=== PATIENT | female | born 1950 | race Caucasian/White ===

== ENCOUNTER → 2023-10-31 09:38 | Outpatient (REF) | payer MEDICARE, OTHER, SELFPAY ==
[2023-10-31 09:59] LABS: % Basophils 1.1 % (0-2); % Eosinophils 1.8 % (0-6); % Immature Granulocytes 0.2 % (0-0.5); % Lymphocytes 27.7 % (20.5-51.1); % Monocytes 10.5 % (1.7-9.3); % Neutrophils 58.7 % (42.2-75.2); Absolute Basophils 0.1 10^3/uL (0-0.2); Absolute Eosinophils 0.1 10^3/uL (0-0.7); Absolute Lymphocytes 1.6 10^3/uL (1.2-3.4); Absolute Monocytes 0.6 10^3/uL (0.1-0.6); Absolute Neutrophils 3.3 10^3/uL (1.4-6.5); Hematocrit 39.6 % (37.0-47.0); Hemoglobin 13.3 g/dL (12.0-16.0); Mean Corp Hgb Conc. 33.6 g/dL (33.0-37.0); Mean Corpuscular Hgb 31.5 pg (27.0-31.0); Mean Corpuscular Volume 93.8 fL (81.0-99.0); Nucleated Red Blood Cells % 0 %; Platelet Count 219 10^3/uL (130-400); Red Blood Cell Count 4.22 10^6/uL (4.20-5.40); Red Cell Dist. Width 12.8 % (11.5-14.5); White Blood Cell Count 5.6 10^3/uL (4.8-10.8)
[2023-10-31 10:55] LABS: Vitamin D, 25-OH*** 53.3 ng/mL (30-80)
[2023-10-31 10:56] LABS: TSH 2.85 uIU/ml (0.47-4.68)
[2023-10-31 11:31] LABS: ALT (SGPT) 14 U/L (0-35); AST (SGOT) 25 U/L (14-36); Albumin 3.8 g/dl (3.5-5.0); Alkaline Phosphatase 48 U/L (38-126); Blood Urea Nitrogen 21 mg/dl (7-17); Calcium 9.4 mg/dl (8.4-10.2); Carbon Dioxide 27 mmol/L (22-30); Chloride 102 mmol/L (98-107); Glucose 94 mg/dl (70-99); HDL Cholesterol 85 mg/dl; LDL Cholesterol, Calculated 67 mg/dl; Potassium 4.4 mmol/L (3.5-5.1); Sodium 138 mmol/L (135-145); Total Bilirubin 0.6 mg/dl (0.2-1.3); Total Cholesterol 165 mg/dl (50-199); Total Protein 6.2 g/dl (6.3-8.2); Triglyceride 66 mg/dl (10-149); Very Low Density Lipoprotein 13 mg/dl (0-30); eGFR > 60.00
== END ==
LOC: REG 09:38
PROVIDERS: ATTENDING PHYSICIAN Family Medicine
DX: J30.2 Other seasonal allergic rhinitis (principal); E78.00 Pure hypercholesterolemia, unspecified; F41.1 Generalized anxiety disorder; F32.0 Major depressive disorder, single episode, mild; Z79.899 Other long term (current) drug therapy; M80.00XA Age-related osteoporosis with current pathological fracture, unspecified site, initial encounter for fracture
CPT/HCPCS: 36415; 80053; 80061; 82306; 84443; 85025

== ENCOUNTER → 2023-11-20 09:36 | Outpatient (REF) | payer MEDICARE, OTHER, SELFPAY | LOC: RCS 09:36 | PROVIDERS: ATTENDING PHYSICIAN Family Medicine | DX: R00.2 Palpitations (principal) | CPT/HCPCS: 93225; 93226 ==

== ENCOUNTER → 2023-12-06 10:33 | Outpatient (REF) | payer MEDICARE, OTHER, SELFPAY ==
[2023-12-06 12:41] LABS: Free T4 1.05 ng/dl (0.78-2.19)
[2023-12-06 12:52] LABS: ALT (SGPT) 17 U/L (0-35); AST (SGOT) 25 U/L (14-36); Albumin 4.3 g/dl (3.5-5.0); Alkaline Phosphatase 48 U/L (38-126); Blood Urea Nitrogen 29 mg/dl (7-17); Calcium 9.7 mg/dl (8.4-10.2); Carbon Dioxide 27 mmol/L (22-30); Chloride 102 mmol/L (98-107); Glucose 83 mg/dl (70-99); Potassium 4.6 mmol/L (3.5-5.1); Sodium 138 mmol/L (135-145); Total Bilirubin 0.4 mg/dl (0.2-1.3); Total Protein 6.9 g/dl (6.3-8.2); eGFR > 60.00
[2023-12-06 12:55] LABS: TSH 1.43 uIU/ml (0.47-4.68)
[2023-12-06 13:16] LABS: Glycohemoglobin (HgbA1c) 5.5 % (4.0-5.6)
[2023-12-06 13:33] LABS: % Eosinophils 1.7 % (0-6); % Immature Granulocytes 0.5 % (0-0.5); % Lymphocytes 23.3 % (20.5-51.1); % Monocytes 8.6 % (1.7-9.3); % Neutrophils 64.9 % (42.2-75.2); Absolute Basophils 0.1 10^3/uL (0-0.2); Absolute Eosinophils 0.1 10^3/uL (0-0.7); Absolute Lymphocytes 1.4 10^3/uL (1.2-3.4); Absolute Monocytes 0.5 10^3/uL (0.1-0.6); Absolute Neutrophils 3.9 10^3/uL (1.4-6.5); Hematocrit 41.8 % (37.0-47.0); Hemoglobin 13.9 g/dL (12.0-16.0); Mean Corp Hgb Conc. 33.3 g/dL (33.0-37.0); Mean Corpuscular Hgb 31.4 pg (27.0-31.0); Mean Corpuscular Volume 94.4 fL (81.0-99.0); Mean Platelet Volume 11.1 fL (7.4-10.4); Nucleated Red Blood Cells % 0 %; Platelet Count 235 10^3/uL (130-400); Red Blood Cell Count 4.43 10^6/uL (4.20-5.40); Red Cell Dist. Width 12.6 % (11.5-14.5); White Blood Cell Count 5.9 10^3/uL (4.8-10.8)
== END ==
LOC: REG 10:33
PROVIDERS: ATTENDING PHYSICIAN Family Medicine
DX: I48.0 Paroxysmal atrial fibrillation (principal); R73.09 Other abnormal glucose
CPT/HCPCS: 36415; 80053; 83036; 84439; 84443; 85025

== ENCOUNTER → 2023-12-14 10:42 | Outpatient (REF) | payer MEDICARE, OTHER, SELFPAY | LOC: RAD 10:42 | PROVIDERS: ATTENDING PHYSICIAN Urology; FAMILY PHYSICIAN Family Medicine | DX: N39.0 Urinary tract infection, site not specified (principal) | CPT/HCPCS: 76770; 76856 ==

== ENCOUNTER → 2023-12-25 11:03 | Outpatient (REF) | payer MEDICARE, OTHER, SELFPAY | LOC: HWRCS 11:03 | PROVIDERS: ATTENDING PHYSICIAN Family Medicine | DX: I48.0 Paroxysmal atrial fibrillation (principal) | CPT/HCPCS: 93306 ==

== ENCOUNTER → 2024-01-09 14:57 | Outpatient (REF) | payer MEDICARE, OTHER, SELFPAY | LOC: WDC 14:57 | PROVIDERS: ATTENDING PHYSICIAN Obstetrics & Gynecology Gynecology; FAMILY PHYSICIAN Family Medicine | DX: Z12.31 Encounter for screening mammogram for malignant neoplasm of breast (principal) | CPT/HCPCS: 77063; 77067 ==

== ENCOUNTER → 2024-01-17 11:50 | Outpatient (REF) | payer MEDICARE, OTHER, SELFPAY | LOC: DHCBC/DCA 11:50 | PROVIDERS: ATTENDING PHYSICIAN Internal Medicine Interventional Cardiology; FAMILY PHYSICIAN Family Medicine | DX: I48.0 Paroxysmal atrial fibrillation (principal); R07.89 Other chest pain | CPT/HCPCS: 78452; 93005; 93017; A9500 ==

== ENCOUNTER → 2024-03-22 11:21 | Outpatient (REF) | payer MEDICARE, OTHER, SELFPAY | LOC: RAD 11:21 | PROVIDERS: ATTENDING PHYSICIAN Family Medicine | DX: M54.6 Pain in thoracic spine (principal) | CPT/HCPCS: 72072 ==

== ENCOUNTER → 2024-04-01 14:18 | Outpatient (REF) | payer MEDICARE, OTHER, SELFPAY ==
[2024-04-01 15:49] LABS: ALT (SGPT) 21 U/L (0-35); AST (SGOT) 31 U/L (14-36); Alkaline Phosphatase 51 U/L (38-126); Blood Urea Nitrogen 20 mg/dl (7-17); Calcium 9.6 mg/dl (8.4-10.2); Carbon Dioxide 26 mmol/L (22-30); Chloride 103 mmol/L (98-107); Glucose 84 mg/dl (70-99); Potassium 4.5 mmol/L (3.5-5.1); Sodium 137 mmol/L (135-145); Total Bilirubin 0.4 mg/dl (0.2-1.3); Total Protein 6.4 g/dl (6.3-8.2); eGFR > 60.00
[2024-04-01 16:01] LABS: Vitamin D, 25-OH*** 47.5 ng/mL (30-80)
== END ==
LOC: REG 14:18
PROVIDERS: ATTENDING PHYSICIAN Internal Medicine Rheumatology; FAMILY PHYSICIAN Family Medicine
DX: E55.9 Vitamin D deficiency, unspecified (principal); M81.0 Age-related osteoporosis without current pathological fracture
CPT/HCPCS: 36415; 80053; 82306

== ENCOUNTER → 2024-04-16 15:34 | Outpatient (REF) | payer MEDICARE, OTHER, SELFPAY | LOC: RAD 15:34 | PROVIDERS: ATTENDING PHYSICIAN Family Medicine | DX: M25.571 Pain in right ankle and joints of right foot (principal) | CPT/HCPCS: 73610 ==

== ENCOUNTER → 2024-05-03 10:08 | Outpatient (REF) | payer MEDICARE, OTHER, SELFPAY | LOC: RAD 10:08 | PROVIDERS: ATTENDING PHYSICIAN Family Medicine | DX: S93.402A Sprain of unspecified ligament of left ankle, initial encounter (principal) | CPT/HCPCS: 73610 ==

== ENCOUNTER → 2024-10-01 10:24 | Outpatient (REF) | payer MEDICARE, OTHER, SELFPAY ==
[2024-10-01 11:23] LABS: % Basophils 0.9 % (0-2); % Eosinophils 1.7 % (0-6); % Immature Granulocytes 0.4 % (0-0.5); % Monocytes 10.9 % (1.7-9.3); % Neutrophils 61.1 % (42.2-75.2); Absolute Basophils 0.1 10^3/uL (0-0.2); Absolute Eosinophils 0.1 10^3/uL (0-0.7); Absolute Lymphocytes 1.4 10^3/uL (1.2-3.4); Absolute Monocytes 0.6 10^3/uL (0.1-0.6); Absolute Neutrophils 3.3 10^3/uL (1.4-6.5); Hematocrit 42.9 % (37.0-47.0); Hemoglobin 13.9 g/dL (12.0-16.0); Mean Corp Hgb Conc. 32.4 g/dL (33.0-37.0); Mean Corpuscular Hgb 31.3 pg (27.0-31.0); Mean Corpuscular Volume 96.6 fL (81.0-99.0); Nucleated Red Blood Cells % 0 %; Platelet Count 229 10^3/uL (130-400); Red Blood Cell Count 4.44 10^6/uL (4.20-5.40); Red Cell Dist. Width 12.6 % (11.5-14.5); White Blood Cell Count 5.4 10^3/uL (4.8-10.8)
[2024-10-01 12:14] LABS: ALT (SGPT) 19 U/L (0-35); AST (SGOT) 27 U/L (14-36); Albumin 4.3 g/dl (3.5-5.0); Alkaline Phosphatase 48 U/L (38-126); Blood Urea Nitrogen 23 mg/dl (7-17); Calcium 9.5 mg/dl (8.4-10.2); Carbon Dioxide 29 mmol/L (22-30); Chloride 100 mmol/L (98-107); Glucose 88 mg/dl (70-99); HDL Cholesterol 102 mg/dl; LDL Cholesterol, Calculated 92 mg/dl; Potassium 4.7 mmol/L (3.5-5.1); Sodium 136 mmol/L (135-145); Total Bilirubin 0.4 mg/dl (0.2-1.3); Total Cholesterol 205 mg/dl (50-199); Total Protein 6.8 g/dl (6.3-8.2); Triglyceride 55 mg/dl (10-149); Very Low Density Lipoprotein 11 mg/dl (0-30); eGFR > 60.00
[2024-10-01 13:11] LABS: TSH 2.52 uIU/ml (0.47-4.68)
[2024-10-01 13:47] LABS: Folate > 20.0 ng/ml (2.76-20); Vitamin B12 957 pg/ml (239-931)
== END ==
LOC: REG 10:24
PROVIDERS: ATTENDING PHYSICIAN Internal Medicine Rheumatology; FAMILY PHYSICIAN Family Medicine
DX: M81.0 Age-related osteoporosis without current pathological fracture (principal); E78.00 Pure hypercholesterolemia, unspecified; I48.0 Paroxysmal atrial fibrillation
CPT/HCPCS: 36415; 80053; 80061; 82607; 82746; 84443; 85025

== ENCOUNTER → 2025-01-08 13:03 | Outpatient (REF) | payer MEDICARE, OTHER, SELFPAY | LOC: WDC 13:03 | PROVIDERS: ATTENDING PHYSICIAN Obstetrics & Gynecology Gynecology; FAMILY PHYSICIAN Family Medicine | DX: Z12.31 Encounter for screening mammogram for malignant neoplasm of breast (principal) | CPT/HCPCS: 77063; 77067 ==

== ENCOUNTER → 2025-04-13 16:14 | Outpatient (REF) | payer MEDICARE, OTHER, SELFPAY ==
[2025-04-13 18:27] LABS: ALT (SGPT) 19 U/L (0-35); AST (SGOT) 27 U/L (14-36); Albumin 4.1 g/dl (3.5-5.0); Alkaline Phosphatase 38 U/L (38-126); Blood Urea Nitrogen 18 mg/dl (7-17); Calcium 9.7 mg/dl (8.4-10.2); Carbon Dioxide 29 mmol/L (22-30); Chloride 100 mmol/L (98-107); Glucose 78 mg/dl (70-99); Potassium 4.7 mmol/L (3.5-5.1); Sodium 133 mmol/L (135-145); Total Protein 6.6 g/dl (6.3-8.2); eGFR > 60.00
[2025-04-13 18:44] LABS: Vitamin D, 25-OH*** 54.9 ng/mL (30-80)
== END ==
LOC: REG 16:14
PROVIDERS: ATTENDING PHYSICIAN Internal Medicine Rheumatology; FAMILY PHYSICIAN Family Medicine
DX: E55.9 Vitamin D deficiency, unspecified (principal); M81.0 Age-related osteoporosis without current pathological fracture
CPT/HCPCS: 36415; 80053; 82306

== ENCOUNTER → 2025-05-15 14:04 | Outpatient (REF) | payer MEDICARE, OTHER, SELFPAY | LOC: RAD 14:04 | PROVIDERS: ATTENDING PHYSICIAN Family Medicine; FAMILY PHYSICIAN Internal Medicine Rheumatology | DX: M80.00XA Age-related osteoporosis with current pathological fracture, unspecified site, initial encounter for fracture (principal); M81.0 Age-related osteoporosis without current pathological fracture | CPT/HCPCS: 77080 ==

== ENCOUNTER → 2025-05-27 09:29 | Outpatient (REF) | payer MEDICARE, OTHER, SELFPAY ==
[2025-05-27 11:15] LABS: ALT (SGPT) 14 U/L (0-35); AST (SGOT) 22 U/L (14-36); Albumin 4.1 g/dl (3.5-5.0); Alkaline Phosphatase 38 U/L (38-126); Blood Urea Nitrogen 20 mg/dl (7-17); Calcium 9.5 mg/dl (8.4-10.2); Carbon Dioxide 30 mmol/L (22-30); Chloride 102 mmol/L (98-107); Glucose 79 mg/dl (70-99); HDL Cholesterol 78 mg/dl; LDL Cholesterol, Calculated 89 mg/dl; Potassium 4.9 mmol/L (3.5-5.1); Sodium 134 mmol/L (135-145); Total Protein 6.4 g/dl (6.3-8.2); Very Low Density Lipoprotein 13 mg/dl (0-30); eGFR > 60.00
== END ==
LOC: REG 09:29
PROVIDERS: ATTENDING PHYSICIAN Family Medicine
DX: E78.00 Pure hypercholesterolemia, unspecified (principal)
CPT/HCPCS: 36415; 80053; 80061